=== PATIENT | female | born 1955 | race Caucasian/White ===

== ENCOUNTER 2020-06-17 19:48 | Emergency (ER) | payer OTHER, SELFPAY ==
[2020-06-17 20:05] VITALS: BP 158/74; PULSE 73; RESP 16; TEMP 36.2; O2SAT 99
--- NOTE | 2020-06-17 20:32 | ED.ANIMALBIT ---
HPI - Animal Bite General Chief Complaint: Animal Bite Stated Complaint: Dog bite Source: patient and RN notes reviewed Limitations: no limitations History of Present Illness HPI narrative: The right-handed patient, who is on basic meds &immunizations are UTD, presents with hand laceration/bite. Patient states several hours ago before arrival, she sustained a dog bite to her hand from her personal puppy. She complains of very mild pain and bleeding that is worse with motion, better at rest, located at a~1.5 cm, mostly linear laceration of the extensor hand located between the distal 1-2nd metacarpal. No numbness/weakness, decreased range of motion or strength. She declines parenteral therapy [suture repair, immunization]; desires Steri-Strip approximation Related Data Home Medications Medication Instructions Recorded Confirmed Aspir-81 06/17/20 metoprolol succinate 06/17/20 Allergies Allergy/AdvReac Type Severity Reaction Status Date / Time No Known Allergies Allergy Verified 06/17/20 20:06 Review of Systems Review of Systems: Narrative: General/Constitutional: No weight loss,fever Eyes: N0: Redness,discharge Ears/Nose/Throat: No: Epistaxis,ear discharge Respiratory: Denies: Hemoptysis Gastrointestinal: No Vomiting, Bleeding-rectal Skin: No Lumps, eruption Neurologic: No Focal Weakness,Sz Hematologic: Denies: Petechiae/Purpura Psychiatric: No: Suicida ideationl All Other Systems: Reviewed and Negative [facility] Social History Social History Gender identity (if verbalized by the patient): Female Comments At time of signature, agree with nursing past medical, surgical, social and family history. There is no relevant family history pertinent to the presenting complaint Exam Narrative: Exam Narrative: General Appearance: Well appearing, Conjunctiva clear Ears: External ear normal, Auditory canal normal Nose: Normal nose, Nares clear Mouth/Throat: Normal appearing, Normal lips Neck: Supple Respiratory: Airway patent, No respiratory distress Skin: 2 cm linear, superficial laceration of extensor hand distally warm, Dry, Normal color MS hand: Normal strength (mostly intact, limited flexion/extension by pain), Tenderness (extensor only at lac, with mild decreased ROM), no swelling Neurological: A&O x3, Normal affect Course Vital Signs Vital signs: Vital Signs Temperature 97.2 F L 06/17/20 20:05 Pulse Rate 73 06/17/20 20:05 Respiratory Rate 16 06/17/20 20:05 Blood Pressure 158/74 H 06/17/20 20:05 Pulse Oximetry 99 06/17/20 20:05 Temperature 97.2 F L 06/17/20 20:05 Pulse Rate 73 06/17/20 20:05 Respiratory Rate 16 06/17/20 20:05 Blood Pressure 158/74 H 06/17/20 20:05 Pulse Oximetry 99 06/17/20 20:05 Procedures Laceration Laceration 1: Date: 06/17/20 Site: hand Side (If applicable): left Size (cm): 2 Description: linear and clean Depth: simple, single layer Pre-repair: irrigated ====== Skin Level ====== Skin layer closed with: dermabond and steri strips ====== Subcutaneous Layer ====== ====== Muscle Layer ====== ====== Tendon Layer ====== Discharge Plan Discharge Clinical Impression: Dog bite Patient Disposition: Home, Self-Care Condition: Improved Instructions: Antibiotic Form, Animal Bite (ED) Prescriptions: New amoxicillin-pot clavulanate [Augmentin] 500-125 mg tablet 1 tablet PO Q12H Qty: 10 RF: 0 mupirocin 2 % ointment 1 applic topical TID Qty: 30 RF: 0 tramadol 50 mg tablet 50 mg PO TID PRN (Reason: pain) Qty: 15 RF: 1 No Action Aspir-81 RF: 0 metoprolol succinate RF: 0 Follow-up/Referrals: UNKNOWN,DOCTOR [Primary Care Provider] -
== END 2020-06-17 20:50 | disposition home or self-care (01) ==
PROVIDERS: Emergency Provider Emergency Medicine
DX: S61.412A Laceration without foreign body of left hand, initial encounter (principal); W54.0XXA Bitten by dog, initial encounter; I10 Essential (primary) hypertension
CPT/HCPCS: 12001; 99202; G0463

== ENCOUNTER 2023-12-23 15:59 | Emergency (ER) | payer MEDICARE, SELFPAY ==
[2023-12-23 16:13] VITALS: BP 150/80; PULSE 76; RESP 18; TEMP 36.9; O2SAT 100
--- NOTE | 2023-12-23 16:31 | ED.EYEPROB ---
HPI - Eye Problem General Chief complaint: Eye Problems Stated complaint: Both Eyes Irritation Time Seen by Provider: 12/23/23 16:31 Source: patient Mode of arrival: ambulatory Limitations: no limitations History of Present Illness HPI Narrative: 68 yo F presents with c/o runny nose, mild congestion, fatigue for 2 to 3 days. had chills for 1 day but resolved. does not want covid testing. knows it's viral. Reports R eye redness, drainage for 1 days. Worse day and now L eye red. Denies vision changes. All systems reviewed and negative except as noted above. Related Data Home Medications Medication Instructions Recorded Confirmed aspirin 81 mg chewable tablet 81 mg PO DAILY 12/23/23 12/23/23 atorvastatin 20 mg tablet 20 mg PO DAILY 12/23/23 12/23/23 metoprolol succinate 25 mg 25 mg PO DAILY 12/23/23 12/23/23 tablet,extended release 24 hr Allergies Allergy/AdvReac Type Severity Reaction Status Date / Time No Known Allergies Allergy Verified 06/17/20 20:06 Review of Systems Review of Systems: CONSTITUTIONAL: Denies fever, chills, or sweats. EYES: Denies visual changes. Reports bilateral eye redness and discharge. ENT: Reports rhinorrhea, congestion. Denies sore throat, or otalgia. CARDIOVASCULAR: Denies chest pain, palpitations, or edema. RESPIRATORY: Denies cough or dyspnea. GASTROINTESTINAL: Denies abdominal pain, nausea, vomiting, or diarrhea. GENITOURINARY: Denies dysuria or hematuria. SKIN: Denies rash or itching. MUSCULOSKELETAL: Denies back pain, joint pain, or myalgia. NEUROLOGIC: Denies headache, numbness, or weakness. PSYCHIATRIC: Denies anxiety or depression. All other systems reviewed are negative, except as documented in HPI. PMFSH Social History Social History Gender identity (if verbalized by the patient): Female Comments At time of signature, agree with nursing past medical, surgical, social and family history. There is no relevant family history pertinent to the presenting complaint. Exam Narrative: GENERAL: This is a well-nourished, well-developed patient, in no apparent distress. HEAD: normocephalic, atraumatic. EYES: PERRL. sclera and conjunctiva left and right eye erythematous. Soft tissue swelling surrounding right eye. Purulent drainage noted bilaterally. Vision is grossly intact. EARS: External ears normal, auditory canals clear and without drainage, TMs normal without perforation. Hearing grossly intact. NOSE: External nose normal with Clear nasal drainage, mild congestion THROAT: Mucous membranes moist, posterior pharynx clear. NECK: Neck supple, non-tender without lymphadenopathy, masses or thyromegaly. CARDIOVASCULAR: Regular rate and rhythm without murmurs, gallops, or rubs. RESPIRATORY: Clear to auscultation. Breath sounds equal bilaterally. No wheezes, rales, or rhonchi. SKIN: warm, Dry, intact with no suspicious lesions or rash, good texture and turgor. NEURO: awake, alert, and oriented to person, place and time. There were no obvious focal neurologic abnormalities. EXTREMITIES: No joint tenderness, effusion, or edema noted. Course Course Level of Care: Express Care Visit Vital Signs Vital signs: Vital Signs Temperature 36.9 C 12/23/23 16:13 Pulse Rate 76 12/23/23 16:13 Respiratory Rate 18 12/23/23 16:13 Blood Pressure 150/80 H 12/23/23 16:13 Pulse Oximetry 100 12/23/23 16:13 Oxygen Delivery Room Air 12/23/23 16:13 Temperature 36.9 C 12/23/23 16:13 Pulse Rate 76 12/23/23 16:13 Respiratory Rate 18 12/23/23 16:13 Blood Pressure 150/80 H 12/23/23 16:13 Pulse Oximetry 100 12/23/23 16:13 Oxygen Delivery Room Air 12/23/23 16:13 reviewed MDM - Eye Problem MDM Narrative Medical decision making narrative: Patient is aware of diagnosis, understands and agrees to treatment plan. Anticipatory guidance given. Patient agrees to follow-up as directed and is aware of reasons to seek care at the emergency dep
== END 2023-12-23 16:45 | disposition home or self-care (01) ==
PROVIDERS: Emergency Provider Nurse Practitioner Family; PCP Hospitalist
DX: J06.9 Acute upper respiratory infection, unspecified (principal); B97.89 Other viral agents as the cause of diseases classified elsewhere; H10.9 Unspecified conjunctivitis; Z79.82 Long term (current) use of aspirin; Z79.899 Other long term (current) drug therapy
CPT/HCPCS: 99213; G0463